=== PATIENT | female | born 1935 | race Caucasian/White ===

== ENCOUNTER 2021-07-07 11:54 | Emergency (ER) | payer OTHER, MEDICARE ==
[2021-07-07] MEDS ORDERED: HYDROmorphone 1 MG/ML Syringe IVPUSH ONE ×2 (12:16→13:11)
[2021-07-07] MEDS ORDERED: Sodium Chloride 0.9% 10 ML Syringe FLUSH PRN (12:16)
[2021-07-07 12:44] LABS: PTT,PARTIAL THROMBOPLSTIN TIME 26.8 SEC (25.6-32.8)
--- NOTE | 2021-07-07 12:45 | CT ---
[id number] CT/CT Head WO IV EXAM: NONCONTRAST HEAD CT INDICATION: TRAUMA, ON THINNERS. COMPARISON: None. DISCUSSION: Mild to moderate generalized atrophy. Mild chronic small vessel ischemic changes in periventricular white matter hypoattenuation. Chronic bilateral basal ganglia lacunar infarcts. No mass effect or midline shift. No acute hemorrhage or extra-axial fluid collection. No acute territorial infarct is identified. Frothy secretions in the left frontal sinus compatible with acute sinusitis. IMPRESSION: 1. Negative for acute intracranial hemorrhage. Jose Luis Diggs MD 07/07/21 [id number] Thank you for allowing us to participate in the care of your patient.
[2021-07-07 12:46] LABS: CHLORIDE,CL 101 mmol/L (98-107); SODIUM,NA 138 mmol/L (136-145)
[2021-07-07 12:48] LABS: ANION GAP 16.1 mmol/L (5-15)
[2021-07-07] MEDS ORDERED: Ondansetron 4 MG/2 ML SDV IVPUSH ONE ×2 (13:11→14:09)
--- NOTE | 2021-07-07 13:11 | CT ---
[id number] CT/CT Cervical Spine WO IV Exam: CT Cervical Spine WO IV CLINICAL DATA: TRAUMA COMPARISON: None. FINDINGS: No fracture or subluxation is seen. The C1-C2 articulation is unremarkable. The prevertebral soft tissues are within normal limits. Multilevel degenerative changes of the cervical spine including loss of disc space height, endplate osteophytosis and facet arthropathy. Findings are most pronounced at C5-C6 and C6-C7 IMPRESSION: NO ACUTE FRACTURE OR SUBLUXATION. Jhonny Pina DO 07/07/21 [id number] Thank you for allowing us to participate in the care of your patient.
--- NOTE | 2021-07-07 13:34 | CR ---
[id number] RAD/RAD Humerus Right 2V Exam: RAD Humerus Right 2V Indication:FALL,DEFORMITY. Comparison: No prior imaging for comparison. Discussion/Impression: Acute complete slightly obliquely orientated humerus fracture along the superior margin of the fixation hardware. Angulation at the fracture site. Subtle ill-defined lucency at the fracture site abutting the hardware is nonspecific and possibly related to angulation of the fracture fragments. However, pathologic fracture secondary osseous lesion can demonstrate a similar appearance. Jesus Connelly MD 07/07/21 [id number] Thank you for allowing us to participate in the care of your patient.
[2021-07-07] MEDS ORDERED: HYDROmorphone 0.5 MG/0.5 ML Syringe IVPUSH ONE (14:00)
--- NOTE | 2021-07-07 14:01 | EDM.PDOC ---
ED HPI GENERAL MEDICAL PROBLEM - General Chief Complaint: Trauma Stated Complaint: Fell, hit head, no loss of consciousness, obvious deformity to right arm, on Eliquis for a fib Time Seen by Provider: 07/07/21 11:55 Source of Information: Reports: Patient, EMS, Family History Limitations: Reports: No Limitations - History of Present Illness INITIAL COMMENTS - FREE TEXT/NARRATIVE: On Eliquis for a fib. Fell on ice, hit head, no loss of consciousness, obvious deformity to right upper arm, neurovascular status intact JACOB. 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) (none) - Related Data Allergies Allergy/AdvReac Type Severity Reaction Status Date / Time morphine AdvReac Nausea Verified 07/07/21 14:06 Home Meds: Home Meds Alendronate Sodium 70 mg PO Q7D 07/07/21 [History] Apixaban [Eliquis] 5 mg PO BID 07/07/21 [History] Ketotifen [Ketotifen 0.025% Ophth Soln] 5 ml EYEBOTH BID 07/07/21 [History] Metoprolol Succinate 50 mg PO DAILY 07/07/21 [History] Simvastatin [Zocor] 40 mg PO BEDTIME 07/07/21 [History] Past Medical History - Infectious Disease History Infectious Disease History: Reports: Novel Coronavirus - Past Surgical History Female Surgical History: Reports: Section Musculoskeletal Surgical History: Reports: ORIF (Right humerus) Social & Family History - Tobacco Use Tobacco Use Within Last Twelve Months: No Review of Systems - Review of Systems Review Of Systems: See Below Constitutional: Reports: No Symptoms Eyes: Reports: No Symptoms Ears: Reports: Other (wears hearing aids - not in at present) Nose: Reports: No Symptoms Mouth/Throat: Reports: No Symptoms Respiratory: Reports: No Symptoms Cardiovascular: Reports: Irregular Heart Rate GI/Abdominal: Reports: No Symptoms Genitourinary: Reports: No Symptoms Musculoskeletal: Reports: Arm Pain (right arm fx) Skin: Reports: No Symptoms Neurological: Reports: No Symptoms Psychiatric: Reports: No Symptoms ED EXAM, GENERAL - Physical Exam Exam: See Below Exam Limited By: No Limitations General Appearance: Alert, Other (appears to be in mild to moderate pain) Eye Exam: Bilateral Eye: EOMI, Normal Inspection, PERRL Ears: Normal External Exam Nose: Normal Inspection, Normal Mucosa, No Blood Throat/Mouth: Normal Inspection, Normal Lips, Normal Gums, Normal Oropharynx, Normal Voice, No Airway Compromise Head: Atraumatic, Normocephalic Neck: Normal Inspection, Supple, Non-Tender, Full Range of Motion, Other (Cleared c-spine CT) Respiratory/Chest: No Respiratory Distress, Lungs Clear, Normal Breath Sounds, No Accessory Muscle Use, Chest Non-Tender Cardiovascular: Normal Peripheral Pulses, Regular Rate, Rhythm Peripheral Pulses: 2+: Radial (R) GI/Abdominal: Normal Bowel Sounds, Soft, Non-Tender, No Distention Back Exam: Normal Inspection Extremities: Normal Capillary Refill, Other (obvious deformity jacob) Neurological: Alert, Oriented, Normal Cognition, No Motor/Sensory Deficits Psychiatric: Normal Affect, Normal Mood Skin Exam: Warm, Dry, Intact, Normal Color Lymphatic: No Adenopathy Course - Orders/Labs/Meds Orders: Active Orders 24 hr Category Date Time Status EKG 12 Lead [EKG Documentation Completion] [RC] URGENT Care 07/07/21 12:37 Active Sodium Chloride 0.9% [Saline Flush] Med 07/07/21 12:16 Active 10 ml FLUSH ASDIRECTED PRN Saline Lock Insert [OM.PC] Routine Oth 07/07/21 12:16 Ordered Medication Orders Sodium Chloride (Sodium Chloride 0.9% 10 Ml Syringe) 10 ml FLUSH ASDIRECTED PRN PRN Reason: Keep Vein Open Labs: Laboratory Tests 07/07/21 07/07/21 07/07/21 Range/Units 12:20 12:20 12:20 WBC 10.0 (4.0-10.0) x10^3/uL RBC 4.52 (4.00-5.50) x10^6/uL Hgb 13.8 (12.0-16.0) g/dL Hct 41.3 (33.0-47.0) % MCV 91.4 (78.0-93.0) fL MCH 30.5 (26.0-32.0) pg MCHC 33.4 (32.0-36.0) g/dL RDW Coeff of Lenny 12.7 (10.0-15.0) % Plt Count 314 (130-400) x10^3/uL Immature Gran % (Auto) 0.50 H (0.00-0.43) % Neut % (Auto) 55.4 (50.0-80.0) % Lymph % (Auto) 30.7 (25.0-50.0) % [place] % (Auto) 11.4 H (2.0-11.0) % Eos % (Auto) 1.6 (0.0-4.0) % Baso % (Auto) 0.4 (0.2-1.2) % Neut # (Auto) 5.5 (1.8-7.7) x10^3/uL Lymph # (Auto) 3.1 (1.0-4.8) x10^3/uL [place] # (Auto) 1.1 H (0.0-0.8) x10^3/uL Eos # (Auto) 0.2 (0.0-0.5) x10^3/uL Baso # (Auto) 0.0 (0.0-0.2) x10^3/uL Immature Gran # (Auto) 0.05 (0.00-0.07) x10^3/uL PT 11.7 (9.9-12.5) SEC INR 1.0 L (2.0-3.5) APTT 26.8 (25.6-32.8) SEC Sodium 138 (136-145) mmol/L Potassium 4.1 (3.5-5.1) mmol/L Chloride 101 (98-107) mmol/L Carbon Dioxide 25 (21-32) mmol/L Anion Gap 16.1 H (5-15) mmol/L BUN 21 H (7-18) mg/dL Creatinine 1.0 (0.55-1.02) mg/dL Est Cr Clr Drug Dosing TNP Estimated GFR (MDRD) 52 Glucose 130 H (70-99) mg/dL Calcium 9.1 (8.5-10.1) mg/dL Corrected Calcium 9.8 (8.5-10.1) mg/dL Total Bilirubin 0.5 (0.2-1.0) mg/dL AST 29 (15-37) U/L ALT 38 (14-59) U/L Alkaline Phosphatase 93 (46-116) U/L Total Protein 7.2 (6.4-8.2) g/dL Albumin 3.1 L (3.4-5.0) g/dL Globulin 4.1 Albumin/Globulin Ratio 0.76 SARS CoV-2 RNA Rapid KRISHAN (NEGATIVE) 07/07/ Range/Units 13:22 WBC (4.0-10.0) x10^3/uL RBC (4.00-5.50) x10^6/uL Hgb (12.0-16.0) g/dL Hct (33.0-47.0) % MCV (78.0-93.0) fL MCH (26.0-32.0) pg MCHC (32.0-36.0) g/dL RDW Coeff of Lenny (10.0-15.0) % Plt Count (130-400) x10^3/uL Immature Gran % (Auto) (0.00-0.43) % Neut % (Auto) (50.0-80.0) % Lymph % (Auto) (25.0-50.0) % [place] % (Auto) (2.0-11.0) % Eos % (Auto) (0.0-4.0) % Baso % (Auto) (0.2-1.2) % Neut # (Auto) (1.8-7.7) x10^3/uL Lymph # (Auto) (1.0-4.8) x10^3/uL [place] # (Auto) (0.0-0.8) x10^3/uL Eos # (Auto) (0.0-0.5) x10^3/uL Baso # (Auto) (0.0-0.2) x10^3/uL Immature Gran # (Auto) (0.00-0.07) x10^3/uL PT (9.9-12.5) SEC INR (2.0-3.5) APTT (25.6-32.8) SEC Sodium (136-145) mmol/L Potassium (3.5-5.1) mmol/L Chloride (98-107) mmol/L Carbon Dioxide (21-32) mmol/L Anion Gap (5-15) mmol/L BUN (7-18) mg/dL Creatinine (0.55-1.02) mg/dL Est Cr Clr Drug Dosing Estimated GFR (MDRD) Glucose (70-99) mg/dL Calcium (8.5-10.1) mg/dL Corrected Calcium (8.5-10.1) mg/dL Total Bilirubin (0.2-1.0) mg/dL AST (15-37) U/L ALT (14-59) U/L Alkaline Phosphatase (46-116) U/L Total Protein (6.4-8.2) g/dL Albumin (3.4-5.0) g/dL Globulin Albumin/Globulin Ratio SARS CoV-2 RNA Rapid KRISHAN Positive H (NEGATIVE) Meds: Medications Generic Name Dose Route Start Last Admin Trade Name Sherq PRN Reason Stop Dose Admin Sodium Chloride 10 ml 07/07/21 12:16 Sodium Chloride 0.9% 10 Ml Syringe FLUSH ASDIRECTED PRN Keep Vein Open Discontinued Medications Generic Name Dose Route Start Last Admin Trade Name Kathi PRN Reason Stop Dose Admin Hydromorphone HCl 0.5 mg 07/07/21 12:16 07/07/21 12:45 Hydromorphone 1 Mg/Ml Syringe IVPUSH 07/07/21 12:17 0.5 mg ONETIME ONE Administration Hydromorphone HCl 0.5 mg 07/07/21 13:11 07/07/21 13:13 Hydromorphone 1 Mg/Ml Syringe IVPUSH 07/07/21 13:12 0.5 mg ONETIME ONE Administration Hydromorphone HCl 0.5 mg 07/07/21 14:00 07/07/21 14:05 Hydromorphone 0.5 Mg/0.5 Ml Syringe IVPUSH 07/07/21 14:01 0.5 mg ONETIME ONE Administration Ondansetron HCl 4 mg 07/07/21 13:11 07/07/21 13:15 Ondansetron 4 Mg/2 Ml Sdv IVPUSH 07/07/21 13:12 4 mg ONETIME ONE Administration Ondansetron HCl 4 mg 07/07/21 14:09 07/07/21 14:12 Ondansetron 4 Mg/2 Ml Sdv IVPUSH 07/07/21 14:10 4 mg ONETIME ONE Administration - Re-Assessments/Exams Free Text/Narrative Re-Assessment/Exam: 07/07/21 14:[address] scan from ambulance. Applied c-collar, started IV. Head and cervical CT scans showed no acute issues. Xray shows complete fracture right humerus. Pt given meds for comfort. Has been vaccinated x 2 and has no respiratory problems, but has positive rapid COVID. Dr. Freedman at [facility] accepted pt. Departure - Departure Time of Disposition: 14:40 Disposition: DC/Tfer to Acute Hospital 02 Condition: Good Clinical Impression: Right humeral fracture Qualifiers: Encounter type: initial encounter Fracture type: closed Fall Qualifiers: Encounter type: initial encounter Qualified Code(s): W19.XXXA - Unspecified fall, initial encounter - Discharge Information Referrals: Jeanine Omalley MD [Primary Care Provider] - Forms: ED Department Discharge, Interfacility Transfer EMTALA - Problem List & Annotations (1) Fall SNOMED Code(s): 0282122, 086407344 Code(s): W19.XXXA - UNSPECIFIED FALL, INITIAL ENCOUNTER Status: Acute Current Visit: Yes Qualifiers: Encounter type: initial encounter Qualified Code(s): W19.XXXA - Unspecified fall, initial encounter (2) Right humeral fracture SNOMED Code(s): 33732872 Code(s): S42.301A - UNSP FRACTURE OF SHAFT OF HUMERUS, RIGHT ARM, INIT Status: Acute Current Visit: Yes Qualifiers: Encounter type: initial encounter Fracture type: closed - Problem List Review Problem List Initiated/Reviewed/Updated: Yes - My Orders Last 24 Hours: My Active Orders 07/07/21 12:16 Sodium Chloride 0.9% [Saline Flush] 10 ml FLUSH ASDIRECTED PRN Saline Lock Insert [OM.PC] Routine 07/07/21 12:37 EKG 12 Lead [EKG Documentation Completion] [RC] URGENT - Assessment/Plan Last 24 Hours: My Active Orders 07/07/21 12:16 Sodium Chloride 0.9% [Saline Flush] 10 ml FLUSH ASDIRECTED PRN Saline Lock Insert [OM.PC] Routine 07/07/21 12:37 EKG 12 Lead [EKG Documentation Completion] [RC] URGENT
== END 2021-07-07 14:40 | disposition short-term general hospital (02) ==
LOC: VM.ED 11:54
DX: S42.301A Unspecified fracture of shaft of humerus, right arm, initial encounter for closed fracture (principal); U07.1 COVID-19; Z79.01 Long term (current) use of anticoagulants; Z79.899 Other long term (current) drug therapy; Z88.5 Allergy status to narcotic agent; W00.9XXA Unspecified fall due to ice and snow, initial encounter
CPT/HCPCS: 36415; 70450; 72125; 73060; 80053; 85025; 85610; 85730; 87635; 93005; 96374; 96375; 96376; 99285; J1170; J2405; U0002

== ENCOUNTER 2021-07-22 12:15 | Inpatient (IN) | payer MEDICARE ==
[2021-07-22] MEDS ORDERED: oxyCODONE 5 MG Tab PO PRN (16:40)
[2021-07-22] MEDS: Apixaban 2.5 MG Tab PO SCH (19:56)
[2021-07-22] MEDS: Simvastatin 40 MG Tab PO SCH (19:57)
[2021-07-22] MEDS: Metoprolol Tartrate 50 MG Tab PO SCH (19:57)
[2021-07-23] MEDS: Apixaban 2.5 MG Tab PO SCH (08:11)
[2021-07-23] MEDS: Multivitamins with Iron/Calcium/Folic Acid/Minerals Tab PO SCH (08:12)
[2021-07-23] MEDS: Amiodarone 200 MG Tab PO SCH (08:12)
[2021-07-23] MEDS: Cholecalciferol (Vitamin D3) 25 MCG Tab PO SCH (08:12)
[2021-07-23] MEDS: Metoprolol Tartrate 50 MG Tab PO SCH (08:12)
[2021-07-23] MEDS: Polyethylene Glycol 3350 Powder 17 GM Packet PO SCH (08:13)
[2021-07-24] MEDS: Apixaban 2.5 MG Tab PO SCH ×3 (08:58→20:51)
[2021-07-24] MEDS: Cholecalciferol (Vitamin D3) 25 MCG Tab PO SCH (08:58)
[2021-07-24] MEDS: Multivitamins with Iron/Calcium/Folic Acid/Minerals Tab PO SCH (08:59)
[2021-07-24] MEDS: Metoprolol Tartrate 50 MG Tab PO SCH ×3 (08:59→20:51)
[2021-07-24] MEDS: Amiodarone 200 MG Tab PO SCH (09:01)
[2021-07-24] MEDS: Polyethylene Glycol 3350 Powder 17 GM Packet PO SCH (09:02)
[2021-07-24] MEDS: Simvastatin 40 MG Tab PO SCH ×2 (12:12→20:51)
[2021-07-25] MEDS: Acetaminophen 325 MG Tab PO PRN ×2 (01:04→09:46)
[2021-07-25] MEDS: Apixaban 2.5 MG Tab PO SCH ×2 (09:42→21:00)
[2021-07-25] MEDS: Amiodarone 200 MG Tab PO SCH (09:42)
[2021-07-25] MEDS: Cholecalciferol (Vitamin D3) 25 MCG Tab PO SCH (09:43)
[2021-07-25] MEDS: Metoprolol Tartrate 50 MG Tab PO SCH ×2 (09:43→21:00)
[2021-07-25] MEDS: Multivitamins with Iron/Calcium/Folic Acid/Minerals Tab PO SCH (09:43)
[2021-07-25] MEDS: Polyethylene Glycol 3350 Powder 17 GM Packet PO SCH (09:44)
[2021-07-25] MEDS: Simvastatin 40 MG Tab PO SCH (21:00)
[2021-07-26] MEDS: Metoprolol Tartrate 50 MG Tab PO SCH ×2 (08:59→20:43)
[2021-07-26] MEDS: Amiodarone 200 MG Tab PO SCH (09:00)
[2021-07-26] MEDS: Polyethylene Glycol 3350 Powder 17 GM Packet PO SCH (09:00)
[2021-07-26] MEDS: Apixaban 2.5 MG Tab PO SCH ×2 (09:00→20:42)
[2021-07-26] MEDS: Cholecalciferol (Vitamin D3) 25 MCG Tab PO SCH (09:00)
[2021-07-26] MEDS: Multivitamins with Iron/Calcium/Folic Acid/Minerals Tab PO SCH (09:00)
[2021-07-26] MEDS: Hypromellose 0.3% Ophth Soln 15 ML Bottle EYEBOTH PRN ×2 (09:01→22:24)
[2021-07-26] MEDS: Simvastatin 40 MG Tab PO SCH (20:43)
[2021-07-26] MEDS: Acetaminophen 325 MG Tab PO PRN (20:46)
[2021-07-27] MEDS: Polyethylene Glycol 3350 Powder 17 GM Packet PO SCH (08:03)
[2021-07-27] MEDS: Metoprolol Tartrate 50 MG Tab PO SCH ×2 (08:03→20:31)
[2021-07-27] MEDS: Acetaminophen 325 MG Tab PO PRN ×2 (08:03→20:33)
[2021-07-27] MEDS: Multivitamins with Iron/Calcium/Folic Acid/Minerals Tab PO SCH (08:04)
[2021-07-27] MEDS: Cholecalciferol (Vitamin D3) 25 MCG Tab PO SCH (08:04)
[2021-07-27] MEDS: Amiodarone 200 MG Tab PO SCH (08:05)
[2021-07-27] MEDS: Apixaban 2.5 MG Tab PO SCH ×2 (08:05→20:30)
[2021-07-27] MEDS: Simvastatin 40 MG Tab PO SCH (20:30)
[2021-07-28] MEDS: Polyethylene Glycol 3350 Powder 17 GM Packet PO SCH (08:25)
[2021-07-28] MEDS: Acetaminophen 325 MG Tab PO PRN ×2 (08:26→23:46)
[2021-07-28] MEDS: Apixaban 2.5 MG Tab PO SCH ×2 (08:26→20:31)
[2021-07-28] MEDS: Multivitamins with Iron/Calcium/Folic Acid/Minerals Tab PO SCH (08:26)
[2021-07-28] MEDS: Cholecalciferol (Vitamin D3) 25 MCG Tab PO SCH (08:26)
[2021-07-28] MEDS: Amiodarone 200 MG Tab PO SCH (08:26)
[2021-07-28] MEDS: Metoprolol Tartrate 50 MG Tab PO SCH ×2 (08:26→20:32)
[2021-07-28] MEDS: Simvastatin 40 MG Tab PO SCH (20:31)
[2021-07-29] MEDS: Metoprolol Tartrate 50 MG Tab PO SCH (08:34)
[2021-07-29] MEDS: Cholecalciferol (Vitamin D3) 25 MCG Tab PO SCH (08:34)
[2021-07-29] MEDS: Apixaban 2.5 MG Tab PO SCH ×2 (08:34→20:19)
[2021-07-29] MEDS: Multivitamins with Iron/Calcium/Folic Acid/Minerals Tab PO SCH (08:34)
[2021-07-29] MEDS: Amiodarone 200 MG Tab PO SCH (08:34)
[2021-07-29] MEDS: Polyethylene Glycol 3350 Powder 17 GM Packet PO SCH (08:35)
[2021-07-29] MEDS: Acetaminophen 325 MG Tab PO PRN (20:18)
[2021-07-29] MEDS: Metoprolol Succinate 50 MG Tab.ER PO SCH (20:19)
[2021-07-30] MEDS: Cholecalciferol (Vitamin D3) 25 MCG Tab PO SCH (07:42)
[2021-07-30] MEDS: Metoprolol Succinate 50 MG Tab.ER PO SCH ×2 (07:42→19:33)
[2021-07-30] MEDS: Acetaminophen 325 MG Tab PO PRN ×2 (07:42→22:02)
[2021-07-30] MEDS: Apixaban 2.5 MG Tab PO SCH ×2 (07:43→19:33)
[2021-07-30] MEDS: Amiodarone 200 MG Tab PO SCH (07:43)
[2021-07-30] MEDS: Multivitamins with Iron/Calcium/Folic Acid/Minerals Tab PO SCH (07:43)
[2021-07-30] MEDS: Polyethylene Glycol 3350 Powder 17 GM Packet PO SCH (07:47)
[2021-07-31] MEDS: Acetaminophen 325 MG Tab PO PRN ×2 (06:39→21:51)
[2021-07-31] MEDS: Hypromellose 0.3% Ophth Soln 15 ML Bottle EYEBOTH PRN (06:41)
[2021-07-31] MEDS: Apixaban 2.5 MG Tab PO SCH ×2 (07:54→19:34)
[2021-07-31] MEDS: Polyethylene Glycol 3350 Powder 17 GM Packet PO SCH (07:55)
[2021-07-31] MEDS: Amiodarone 200 MG Tab PO SCH (07:55)
[2021-07-31] MEDS: Multivitamins with Iron/Calcium/Folic Acid/Minerals Tab PO SCH (07:55)
[2021-07-31] MEDS: Metoprolol Succinate 50 MG Tab.ER PO SCH ×2 (07:55→19:34)
[2021-07-31] MEDS: Cholecalciferol (Vitamin D3) 25 MCG Tab PO SCH (07:55)
[2021-08-01] MEDS: Metoprolol Succinate 50 MG Tab.ER PO SCH (07:39)
[2021-08-01] MEDS: Multivitamins with Iron/Calcium/Folic Acid/Minerals Tab PO SCH (07:39)
[2021-08-01] MEDS: Apixaban 2.5 MG Tab PO SCH (07:39)
[2021-08-01] MEDS: Cholecalciferol (Vitamin D3) 25 MCG Tab PO SCH (07:40)
[2021-08-01] MEDS: Amiodarone 200 MG Tab PO SCH (07:41)
[2021-08-01] MEDS: Polyethylene Glycol 3350 Powder 17 GM Packet PO SCH (07:41)
== END 2021-08-01 13:23 | disposition home health service (06) | DRG 561 ==
LOC: VM.MS 14:52
PROVIDERS: ADMIT Internal Medicine; ATTEND Internal Medicine
DX: M97.31XD Periprosthetic fracture around internal prosthetic right shoulder joint, subsequent encounter (principal); E78.5 Hyperlipidemia, unspecified; I10 Essential (primary) hypertension; I48.91 Unspecified atrial fibrillation; D64.9 Anemia, unspecified; Z88.5 Allergy status to narcotic agent; Z79.899 Other long term (current) drug therapy; Z98.49 Cataract extraction status, unspecified eye; Z86.16 Personal history of COVID-19
CPT/HCPCS: 71046; 93005; 97110-GO; 97116-GP; 97161-GP; 97165-GO; 97530-GP; 97535-GO; A9270-GY